=== PATIENT | female | born 1940 | race Caucasian/White ===

== ENCOUNTER 2021-03-27 19:27 | Observation (INO) ==
[2021-03-27] MEDS ORDERED: Digoxin IV 0.5 MG/2 ML AMP (0.25 MG/ML) IV SLOW PU ONE (19:45)
[2021-03-27] MEDS ORDERED: Diltiazem IV push/loading dose 5 MG/ML 5 ML vial (25 mg) IV SLOW PU ONE (19:46)
[2021-03-27] MEDS ORDERED: Diltiazem (ADVAN VIAL) 100 MG/100 ML ADDV.BAG IV SCH (20:00)
[2021-03-27 20:35] LABS: Hematocrit 42 % (35-47); Hemoglobin 14.6 g/dL (12.0-16.0); Mean Corpuscular HGB Conc 35 g/dL (31-36); Mean Corpuscular Hemoglobin 33 pg (27-31); Mean Corpuscular Volume 93 fL (80-97); Mean Platelet Volume 10.5 fL (7.4-10.4); Platelet Count 238 10^3/uL (150-450); Red Blood Count 4.48 10^6 /uL (3.70-4.87); Red Cell Distribution Width 14 % (10-15); White Blood Count 12.3 10^3/uL (3.5-10.8)
[2021-03-27 20:56] LABS: ALT 13 U/L (7-52); Albumin 3.9 g/dL (3.2-5.2); Albumin/Globulin Ratio 1.3 (1-3); Alkaline Phosphatase 59 U/L (35-149); Blood Urea Nitrogen 12 mg/dL (6-24); CO2 Carbon Dioxide 25 mmol/L (22-32); Calcium 9.5 mg/dL (8.6-10.3); Chloride 102 mmol/L (101-111); Glucose 124 mg/dL (70-100); Magnesium 1.9 mg/dL (1.9-2.7); Sodium 138 mmol/L (135-145); Total Protein 6.9 g/dL (6.4-8.9)
[2021-03-27] MEDS ORDERED: DILTIAZEM IV SCH (21:00)
[2021-03-27] MEDS ORDERED: D5W IV SCH (21:00)
[2021-03-27 21:06] LABS: RBC Morphology Normal (Normal)
[2021-03-27 21:11] LABS: Troponin I 0.03 ng/mL (<0.03)
[2021-03-27 21:33] LABS: TSH Ultra Thyroid Stim Horm 1.76 mcIU/mL (0.34-5.60)
[2021-03-27 21:49] LABS: AST 19 U/L (13-39); Anion Gap 11 mmol/L (2-11); Potassium 3.6 mmol/L (3.5-5.0)
[2021-03-27] MEDS ORDERED: Potassium Chlor 20 meq TAB.ER PO ONE (22:54)
[2021-03-27] MEDS ORDERED: Ondansetron 4 mg VIAL 2 MG/ML 2 ml VIAL IV PRN (22:54)
[2021-03-27] MEDS ORDERED: Magnesium Sulfate 2 gm BAG 2 GM/50 ML BAG IVPB ONE (22:54)
[2021-03-28 02:31] LABS: Influenza A Molecular Negative (Negative); Influenza B Molecular Negative (Negative); Rapid COVID-19 Molecular Undetected (Undetected)
[2021-03-28 02:33] LABS: Troponin I 0.03 ng/mL (<0.03)
[2021-03-28 03:25] LABS: Urine Appearance Cloudy; Urine Bilirubin Negative (Negative); Urine Blood 2+ (Negative); Urine Color Yellow; Urine Glucose Negative (Negative); Urine Ketones 1+ (Negative); Urine Nitrite Negative (Negative); Urine Protein Negative (Negative); Urine Specific Gravity 1.008 (1.002-1.030); Urine Urobilinogen Negative (Negative)
[2021-03-28 03:29] LABS: Urine Bacteria 1+ (Absent); Urine Red Blood Cell 1+(3-5/hpf) (Absent); Urine Squamous Epithelial Cell Present (Absent); Urine White Blood Cell 1+(6-10/hpf) (Absent)
[2021-03-28] MEDS: Albuterol HFA INHALER 8 gm MDI INH SCH ×8 (05:10→21:01)
[2021-03-28 05:51] LABS: Hematocrit 41 % (35-47); Hemoglobin 14.2 g/dL (12.0-16.0); Mean Corpuscular HGB Conc 35 g/dL (31-36); Mean Corpuscular Hemoglobin 33 pg (27-31); Mean Corpuscular Volume 94 fL (80-97); Mean Platelet Volume 10.4 fL (7.4-10.4); Platelet Count 232 10^3/uL (150-450); Red Blood Count 4.33 10^6 /uL (3.70-4.87); Red Cell Distribution Width 15 % (10-15); White Blood Count 9.9 10^3/uL (3.5-10.8)
[2021-03-28 05:53] LABS: ABS Eosinophils 0.3 10^3/ul (0-0.6); ABS Lymphocytes 2.6 10^3/ul (1.0-4.8); ABS Monocytes 0.8 10^3/ul (0-0.8); ABS Neutrophils 6.2 10^3/ul (1.5-7.7); Eosinophil % 3.1 %; Lymphocyte % 26.3 %; Nucleated Red Blood Cells % 0.1
[2021-03-28 05:57] LABS: INR 1.36 (0.86-1.15)
[2021-03-28 06:13] LABS: Calcium 8.7 mg/dL (8.6-10.3); Potassium 3.7 mmol/L (3.5-5.0)
[2021-03-28] MEDS ORDERED: Potassium Chlor 20 meq TAB.ER PO ONE (07:48)
[2021-03-28 08:25] LABS: Magnesium 2.2 mg/dL (1.9-2.7)
[2021-03-28] MEDS: Mometasone/Formoter 200/5 MDI INH SCH ×2 (10:00→21:02)
[2021-03-29 06:20] LABS: Calcium 8.7 mg/dL (8.6-10.3); Potassium 3.7 mmol/L (3.5-5.0)
[2021-03-29] MEDS: Albuterol HFA INHALER 8 gm MDI INH SCH ×3 (06:47→13:48)
[2021-03-29] MEDS: Mometasone/Formoter 200/5 MDI INH SCH (07:59)
[2021-03-29] MEDS ORDERED: Flu vaccine *QUAD* 2021-22* 0.5 ML SYRINGE IM ONE (09:00)
[2021-03-29 15:34] VITALS: BP 133/74
== END 2021-03-29 17:00 | disposition home or self-care (01) ==
LOC: EDHOLD 19:27 → ED 19:27 → INTOOBSV 03-28 04:46 → SUATTDRO 03-28 04:46 → EDHOLD 03-28 04:46 → MED 03-28 05:13
PROVIDERS: ADMIT Internal Medicine; ATTEND Internal Medicine

== ENCOUNTER 2022-03-03 03:41 | Observation (INO) ==
[2022-03-03] MEDS ORDERED: methylPREDNISolone SOD SUCC 125 mg 2 ML VIAL IV ONE (03:59)
[2022-03-03] MEDS ORDERED: Albuterol HFA INHALER 8 gm MDI INH ONE (03:59)
[2022-03-03] MEDS ORDERED: cefTRIAXone 1 gm/50 mL D5W 1 GM/50 ML BAG IV ONE (04:00)
[2022-03-03] MEDS ORDERED: Azithromycin 500 mg/250 ml NS 500 MG/250 ML BAG IVPB ONE (04:00)
[2022-03-03 04:20] LABS: ABS Basophils 0.1 10^3/ul (0-0.2); ABS Lymphocytes 1.2 10^3/ul (1.0-4.8); ABS Monocytes 0.5 10^3/ul (0-0.8); ABS Neutrophils 10.1 10^3/ul (1.5-7.7); Eosinophil % 0.2 %; Hematocrit 34 % (35-47); Hemoglobin 11.3 g/dL (12.0-16.0); Lymphocyte % 9.8 %; Mean Corpuscular HGB Conc 33 g/dL (31-36); Mean Corpuscular Hemoglobin 32 pg (27-31); Mean Corpuscular Volume 96 fL (80-97); Mean Platelet Volume 9.2 fL (7.4-10.4); Platelet Count 275 10^3/uL (150-450); Red Blood Count 3.54 10^6 /uL (3.70-4.87); Red Cell Distribution Width 15 % (10-15); White Blood Count 11.8 10^3/uL (3.5-10.8)
[2022-03-03 04:53] LABS: Albumin 3.9 g/dL (3.2-5.2); Albumin/Globulin Ratio 1.5 (1-3); Calcium 8.9 mg/dL (8.6-10.3); Globulin 2.6 g/dL (2-4); Potassium 3.6 mmol/L (3.5-5.0); Total Protein 6.5 g/dL (6.4-8.9); eGFR CKD-EPI 39.9 (>60)
[2022-03-03] MEDS ORDERED: Lactated Ringers 1000 ml BAG 1,000 ML IV ONE (06:17)
[2022-03-03] MEDS ORDERED: hydrALAZINE 20 mg/ml 1 ML Vial IV IV SLOW PU PRN (09:05)
[2022-03-03] MEDS: Albuterol HFA INHALER 8 gm MDI INH SCH ×6 (09:09→23:56)
[2022-03-03] MEDS: CMC:FLUTICAS/UMECLI/VILANT 100-62.5-25 MDI (NF) INH SCH ×2 (09:44→10:11)
[2022-03-03] MEDS ORDERED: hydrALAZINE 20 mg/ml 1 ML Vial IV IV SLOW PU ONE ×2 (10:41→10:50)
[2022-03-03] MEDS ORDERED: Furosemide 40 mg/4 ml IV VIAL IV ONE (11:09)
[2022-03-03 13:21] LABS: Potassium 3.9 mmol/L (3.5-5.0)
[2022-03-03 13:27] LABS: eGFR CKD-EPI 41.1 (>60)
[2022-03-03] MEDS: hydrALAZINE 20 mg/ml 1 ML Vial IV IV SLOW PU PRN (20:43)
[2022-03-03 20:51] LABS: Urine Appearance Clear; Urine Bilirubin Negative (Negative); Urine Blood Negative (Negative); Urine Color Yellow; Urine Glucose Negative (Negative); Urine Ketones Negative (Negative); Urine Nitrite Negative (Negative); Urine Protein Negative (Negative); Urine Urobilinogen Negative (Negative)
[2022-03-03 20:55] LABS: Urine Bacteria 1+ (Absent); Urine Red Blood Cell Trace(0-2/hpf) (Absent); Urine Squamous Epithelial Cell Present (Absent); Urine White Blood Cell 1+(6-10/hpf) (Absent)
[2022-03-04] MEDS: hydrALAZINE 20 mg/ml 1 ML Vial IV IV SLOW PU PRN ×2 (03:29→16:17)
[2022-03-04 06:08] LABS: ABS Lymphocytes 1.4 10^3/ul (1.0-4.8); ABS Monocytes 0.9 10^3/ul (0-0.8); ABS Neutrophils 11.7 10^3/ul (1.5-7.7); Eosinophil % 0.2 %; Hematocrit 33 % (35-47); Hemoglobin 10.5 g/dL (12.0-16.0); Lymphocyte % 9.7 %; Mean Corpuscular HGB Conc 32 g/dL (31-36); Mean Corpuscular Hemoglobin 31 pg (27-31); Mean Corpuscular Volume 96 fL (80-97); Mean Platelet Volume 9.1 fL (7.4-10.4); Platelet Count 255 10^3/uL (150-450); Red Cell Distribution Width 15 % (10-15); White Blood Count 14.1 10^3/uL (3.5-10.8)
[2022-03-04 06:39] LABS: Calcium 8.8 mg/dL (8.6-10.3); eGFR CKD-EPI 39.2 (>60)
[2022-03-04] MEDS: CMC:FLUTICAS/UMECLI/VILANT 100-62.5-25 MDI (NF) INH SCH (07:08)
[2022-03-04] MEDS ORDERED: Azithromycin 500 mg/250 ml NS 500 MG/250 ML BAG IVPB SCH (09:00)
[2022-03-04] MEDS ORDERED: Potassium Chlor 20 meq TAB.ER PO ONE ×2 (13:11→17:00)
[2022-03-04 13:33] LABS: Magnesium 1.9 mg/dL (1.9-2.7)
[2022-03-04] MEDS ORDERED: Magnesium Hydroxide LIQ 30 ML UDC PO ONE (18:23)
[2022-03-05] MEDS: CMC:FLUTICAS/UMECLI/VILANT 100-62.5-25 MDI (NF) INH SCH (07:40)
[2022-03-05 09:15] LABS: Calcium 8.9 mg/dL (8.6-10.3); Potassium 3.1 mmol/L (3.5-5.0); eGFR CKD-EPI 43.5 (>60)
[2022-03-05 14:36] VITALS: BP 145/74
== END 2022-03-05 16:00 | disposition home or self-care (01) ==
LOC: ED 03:41 → EDHOLD 03:41 → SUATTDRO 06:13 → EDHOLD 08:36 → MED 09:07
PROVIDERS: ADMIT Internal Medicine; ATTEND Hospitalist